=== PATIENT | male | born 1975 | race Asian ===

== ENCOUNTER 2020-08-08 14:33 | Emergency (ER) | payer OTHER ==
[~2020-08-08] VITALS: Ht 190.5 cm; Wt 99.8 kg
[2020-08-08 16:25] LABS: PLATELET COUNT 227 K/uL (142-355)
[2020-08-08 16:36] LABS: POTASSIUM 4.2 mmol/L (3.6-5.2)
[2020-08-08 17:45] VITALS: BP 131/74; TEMP 98.5
== END 2020-08-08 17:45 | disposition home or self-care (01) ==
LOC: ED 14:33
PROVIDERS: Emergency Medicine Emergency Medical Services
DX: B34.9 Viral infection, unspecified (principal); Z03.818 Encounter for observation for suspected exposure to other biological agents ruled out
CPT/HCPCS: 36415; 80053; 81000; 85027; 87635; 96360; 96375; 99284; J1885; U0003

== ENCOUNTER 2020-08-11 07:43 | Emergency (ER) | payer OTHER ==
[~2020-08-11] VITALS: Ht 190.5 cm; Wt 99.8 kg
[2020-08-11 08:26] LABS: PLATELET COUNT 238 K/uL (142-355); POTASSIUM 4.6 mmol/L (3.6-5.2)
[2020-08-11 09:38] VITALS: BP 142/91; TEMP 97.2
== END 2020-08-11 09:39 | disposition home or self-care (01) ==
LOC: ED 07:43
PROVIDERS: Hospitalist
DX: R19.7 Diarrhea, unspecified (principal); A08.4 Viral intestinal infection, unspecified; R11.2 Nausea with vomiting, unspecified; Z20.828 Contact with and (suspected) exposure to other viral communicable diseases
CPT/HCPCS: 36415; 80053; 85027; 87502; 87635; 87651; 96360; 96375; 99284; J2405; U0003

== ENCOUNTER 2021-03-14 06:13 | Emergency (ER) | payer OTHER ==
[~2021-03-14] VITALS: Ht 190.5 cm; Wt 97.5 kg
[2021-03-14 06:20] VITALS: BP 146/89; TEMP 98.3
== END 2021-03-14 07:38 | disposition home or self-care (01) ==
LOC: ED 06:13
DX: B34.9 Viral infection, unspecified (principal); Z20.822 Contact with and (suspected) exposure to COVID-19
CPT/HCPCS: 87502; 87635; 99283; U0003

== ENCOUNTER 2021-03-23 11:06 | Emergency (ER) | payer OTHER ==
[~2021-03-23] VITALS: Ht 190.5 cm; Wt 95.3 kg
[2021-03-23 13:05] LABS: PLATELET COUNT 223 K/uL (142-355)
[2021-03-23 13:13] LABS: POTASSIUM 3.9 mmol/L (3.6-5.2)
[2021-03-23 14:44] VITALS: BP 129/74; TEMP 97.9
== END 2021-03-23 14:45 | disposition home or self-care (01) ==
LOC: ED 11:06
PROVIDERS: Hospitalist
DX: J06.9 Acute upper respiratory infection, unspecified (principal); J40 Bronchitis, not specified as acute or chronic; R50.9 Fever, unspecified
CPT/HCPCS: 36415; 80053; 81000; 85027; 87651; 96360; 96365; 99284; J0696; J1100; J2405